=== PATIENT | male | born 1990 | race Two or more races ===

== ENCOUNTER 2018-12-22 22:44 | Emergency (ER) | payer OTHER ==
[~2018-12-22] VITALS: Ht 172.7 cm; Wt 77.1 kg
--- NOTE | 2018-12-22 22:49 | NUR ---
On admission to ER patient agitated, naming people(everyone-EMS,Employees),noisy,loud. Advised to keep voice down-patient replied-"F-ing mandaen".
--- NOTE | 2018-12-22 23:00 | NUR ---
ED Nurse Note: Pateint nursed in room OBGYN. Complaining of pain to head and shoulders and back. Has blood present head irrigated small laceration to the right side of the head. No active bleed. Blood cleaned. Swelling to the right side of the face. Patient states he fell. Reports no LOC. Smells of alcohol. Calm after being placed in room but easily irriated.
--- NOTE | 2018-12-22 23:10 | Emergency Room Report ---
History of Present Illness General Chief Complaint: Laceration Source: Patient Present Illness HPI This is a 28-year-old male with no past medical history who presents with chief complaint of head injury and bleeding. Patient has been drinking tonight. He fell and hit the right side of his head. Bystander called 911. He was combative per EMS. He denies any loss of consciousness. Complained of pain to the right side of the head. No nausea no vomiting but no fever chills. No other injury. No drug use. Tetanus was last year. Allergies: Coded Allergies: No Known Allergies (Unverified , 12/22/18) Patient History Past Medical History: see triage record, old chart reviewed Past Surgical History: none Pertinent Family History: none Social History: Reports: alcohol use Immunizations: UTD Reviewed Nursing Documentation: PMH: Agreed; PSxH: Agreed Nursing Documentation-PMH Past Medical History: No Stated History Review of Systems Eye: Denies: eye pain, blurred vision ENT: Denies: ear pain, nose congestion, throat swelling Respiratory: Denies: cough, shortness of breath Cardiovascular: Denies: chest pain, palpitations Gastrointestinal: Denies: abdominal pain, diarrhea, nausea, vomiting Musculoskeletal: Denies: back pain, joint pain Skin: Denies: rash Neurological: Denies: headache, numbness Endocrine: Denies: increased thirst, increased urine Hematologic/Lymphatic: Denies: easy bruising All Other Systems: negative except mentioned in HPI Physical Exam Vital Signs Date Time Temp Pulse Resp B/P (MAP) Pulse Ox O2 Delivery O2 Flow Rate FiO2 12/22/18 22:39 98.4 120 20 108/65 (79) 99 Room Air Vitals with tachycardia Sp02 EP Interpretation: reviewed, normal General Appearance: well appearing, no apparent distress, alert, other - Intoxicated Head: normocephalic, other - Vital scalp with 2 cm laceration. Also with small hematoma. No bony deformity. Eyes: bilateral eye PERRL, bilateral eye EOMI ENT: hearing grossly normal, normal pharynx Neck: full range of motion, supple, no meningismus Respiratory: chest non-tender, lungs clear, normal breath sounds Cardiovascular #1: regular rate, rhythm, no murmur Gastrointestinal: normal bowel sounds, non tender, no mass, no organomegaly, no bruit, non-distended Musculoskeletal: back normal, gait/station normal, normal range of motion Psychiatric: mood/affect normal Procedures Laceration/Wound Repair Laceration/Wound Repair : Consent: Verbal Wound Location: head Wound's Depth, Shape: linear Wound Length (cm): 2 Wound Explored: clean Irrigated w/ Saline (ccs): 1000 Wound Repaired With: jaquan Patient Tolerated: Well Complications: None Progress 3 jaquan placed. Patient tolerated surgery without any problem. Medical Decision Making Diagnostic Impression: Primary Impression: Head injury, acute Qualified Codes: S09.90XA - Unspecified injury of head, initial encounter Additional Impressions: Scalp laceration Qualified Codes: S01.01XA - Laceration without foreign body of scalp, initial encounter Alcohol intoxication Qualified Codes: F10.920 - Alcohol use, unspecified with intoxication, uncomplicated Nasal bone fx-closed Qualified Codes: S02.2XXA - Fracture of nasal bones, initial encounter for closed fracture ER Course Patient presents with head injury secondary to a fall from alcohol intoxication. No evidence of intracranial bleed or skull fracture. Will observe patient until clinical sobriety before discharge. CT/MRI/US Diagnostic Results CT/MRI/US Diagnostic Results : Imaging Test Ordered: CT head Impression Read by radiologist. Soft tissue swelling. No intracranial bleed or skull fracture. nasal bone frx Last Vital Signs Date Time Temp Pulse Resp B/P (MAP) Pulse Ox O2 Delivery O2 Flow Rate FiO2 12/22/18 22:39 98.4 120 20 108/65 (79) 99 Room Air Status: improved Disposition: HOME, SELF-CARE Condition: Improved Patient Instructions: Laceration Care, Adult Additional Instructions: Follow-up with in 7 days. Angela out in 7 days. Abstain from drinking to excess. Return if symptoms worsen. Ash Child MD Dec 22, 2018 23:10
[2018-12-22 23:25] VITALS: BP 116/69
--- NOTE | 2018-12-22 23:39 | NUR ---
ED Nurse Note: Patient has returned from CT. Medication given as prescribed. Vital signs rechecked. A&Ox4
--- NOTE | 2018-12-23 00:25 | NUR ---
ED Nurse Note: PATIENT SLEEPING EASILY ROUSABLE.
--- NOTE | 2018-12-23 01:00 | Diagnostic Imaging Report ---
Indications: Trauma, laceration to right side of head Technique: Spiral acquisitions obtained through the brain. Angled axial and coronal 5 x 5 mm slices were reconstructed. Total dose length product 1357 mGycm. CTDI vol(s) 62 mGy. Dose reduction achieved using automated exposure control Comparison: None. Findings: There is a small right scalp contusion with overlying skin jaquan. No acute intracranial hemorrhage or edema, mass effect, nor midline shift. Normal barillas-white differentiation. There is a fracture deformity of the nasal bone. There is unusual tubular fat lucency with central hyperattenuation is seen in the right frontal scalp. There is hypertrophy of the adenoids. The visualized sinuses are clear. There is symmetrical and or displacement of the medial orbital goode bilaterally, presumably developmental. The mastoids are clear. Impression: Negative for acute intracranial bleed or mass effect Evidence of nasal fracture The above findings are in agreement with the [facility] preliminary report Unusual tubular foreign body within the frontal scalp. Correlate with clinical history. This was not described on the [facility] preliminary report, was discussed by phone with Dr. Tolentino in the emergency room at the time of interpretation The CT scanner at [facility] is accredited by the [employer] and the scans are performed using protocols designed to limit radiation exposure to as low as reasonably achievable to attain images of sufficient resolution adequate for diagnostic evaluation.
--- NOTE | 2018-12-23 01:00 | NUR ---
ED Nurse Note: Patient sleeping easily rousable
[2018-12-23 01:22] VITALS: BP 112/64
--- NOTE | 2018-12-23 03:00 | NUR ---
ED Nurse Note: Patient sleeping easily rousable
[2018-12-23 03:20] VITALS: BP 102/66
--- NOTE | 2018-12-23 05:10 | NUR ---
ED Nurse Note: Patient sleeping easily rousable
[2018-12-23 05:21] VITALS: BP 104/74
--- NOTE | 2018-12-23 06:10 | NUR ---
ED Nurse Note: Patient woken for discharge. Discharge advice provided. Patient provided with sandwich and bannana and orange juice pre discharge. Reports improved pain score and has slept well during time in ER. A&O x4 GCS15
--- NOTE | 2018-12-23 06:15 | NUR ---
ER DISCHARGE NOTE: Patient is cleared to be discharged per ERMD, pt is aox4, on room air, with stable vital signs. pt without signing for discharge instructions but instructions given verbally instructions, pt was able to verbalize understanding, pt id band removed. pt is able to ambulate with steady gait. pt took all belongings.
[2018-12-23 06:16] VITALS: BP 106/64
== END 2018-12-23 06:20 | disposition home or self-care (01) ==
LOC: EDBD 22:44 → EMR 22:58
DX: S09.90XA Unspecified injury of head, initial encounter (principal); S01.01XA Laceration without foreign body of scalp, initial encounter; F10.920 Alcohol use, unspecified with intoxication, uncomplicated; S02.2XXA Fracture of nasal bones, initial encounter for closed fracture; W18.39XA Other fall on same level, initial encounter; Y92.9 Unspecified place or not applicable
CPT/HCPCS: 12001; 70450; Z7502; 99284